=== PATIENT | male | born 2000 | race Caucasian/White ===

== ENCOUNTER 2020-05-30 10:41 | Emergency (ER) | payer OTHER, SELFPAY ==
--- NOTE | ~2020-05-30 | XR_ITS ---
XR forearm RT 2V 05/30/2020 11:03 INDICATION: Blunt trauma to the right arm with arm pain PROCEDURE: 2 views right forearm COMPARISON: No prior studies for comparison. FINDINGS: Fracture, dislocation or subluxation is not identified. The soft tissues appear within norm al limits. No foreign bodies are identified. IMPRESSION: 1: NO ACUTE BONE OR JOINT ABNORMALITY IDENTIFIED. Reviewed, dictated and finalized at location B.
[2020-05-30 10:49] VITALS: BP 130/61; PULSE 72; RESP 16; TEMP 36.6; O2SAT 99
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
== END 2020-05-30 12:10 | disposition home or self-care (01) ==
PROVIDERS: Emergency Provider Registered Nurse; PCP Family Medicine Adolescent Medicine
DX: S50.11XA Contusion of right forearm, initial encounter (principal); W20.8XXA Other cause of strike by thrown, projected or falling object, initial encounter; G47.419 Narcolepsy without cataplexy
CPT/HCPCS: 73090; 99213; G0463

== ENCOUNTER 2020-10-14 17:15 | Outpatient (CLI) | payer SELFPAY ==
--- NOTE | ~2020-10-14 | XR_ITS ---
EXAMINATION: XR lumbar spine 2-3V DATE: 10/14/2020 17:43 INDICATION: Low back pain one month post injury after bending over with audible pop. TECHNIQUE: Anteroposterior and lateral views of the lumbar spine, and cone-down lateral view of the l umbosacral junction were obtained. COMPARISON: 06/16/2015 FINDINGS: 2 mm retrolisthesis L4 on L5. Vertebral body heights are normal. Mild disc height loss at L4-L5. Lumb ar facet joints appear unremarkable. Sacrum and bilateral sacroiliac joints are normal. IMPRESSION: 1. Mild disc height loss at L4-L5 2 mm retrolisthesis L4 on L5, new since the prior study. Reviewed, dictated and finalized at location A. RVISOR TYPESETTING IMPRESSION: 1. Mild disc height loss at L4-L5 2 mm retrolisthesis L4 on L5, new since the p rior study.
== END 2020-10-14 17:16 | disposition home or self-care (01) ==
LOC: CHSIMG 17:21
PROVIDERS: PCP Family Medicine Adolescent Medicine
DX: M54.5 Low back pain (principal)
CPT/HCPCS: 72100

== ENCOUNTER 2024-09-30 12:47 | Emergency (ER) | payer OTHER, SELFPAY ==
[2024-09-30] VITALS (12 sets, daily range): BP systolic 127–148; BP diastolic 67–88; PULSE 65–75; RESP 14; TEMP 36.4–36.7; O2SAT 98–100
--- NOTE | ~2024-09-30 | CT_ITS ---
EXAMINATION: CT abdomen pelvis w con DATE: 09/30/2024 14:22 INDICATION: Rt. side abdominal pain/ nausea x1 day TECHNIQUE: Computed tomography (CT) of the abdomen and pelvis was performed with 100 mL Omnipaque-350 intravenous contrast. Automated exposure control and iterative reconstruction technique were employe d. The dose-length product was 246.46 mGy-cm. COMPARISON: None. FINDINGS: Lower thorax: Unremarkable Liver: Normal. Biliary/Gallbladder: Gallbladder is normal. No bile duct dilation. Pancreas: No mass or duct dilation. Spleen: Normal. Adrenals:No mass. Kidneys: No suspicious mass, obstructing stone, or hydronephrosis. GI tract: No small or large bowel dilation. Dilated appendix with a prominent, hyperemic wall. No sig nificant surrounding inflammatory change, fluid, or organized collection. No evidence of wall breakdo wn. Mesentery/Peritoneum: No ascites, mass, or free air. Retroperitoneum: No mass. Pelvis: Pelvic organs are within normal limits. Soft Tissues: Soft tissues and body wall unremarkable. Bones: No acute osseous finding. IMPRESSION: Acute uncomplicated appendicitis. Reviewed, dictated and finalized at location [facility]
--- NOTE | 2024-09-30 13:00 | ED_ITS ---
HPI - General Adult General Chief complaint: Abdominal Pain Stated complaint: abdominal pain Time Seen by Provider: 09/30/24 13:00 Source: patient Mode of arrival: ambulatory Limitations: no limitations History of Present Illness HPI narrative: 24-year-old white male complains of right lower quadrant pain started periumbilical yesterday and then radiated to his right lower quadrant he he rates the pain is a 5/10 is worse than it was yesterday when he was seen in the urgent care around 2 or 3:00 p.m. he vomited around 1:00 a.m. some red tinged liquid has eaten since then today he ate breakfast last p.o. was 12 noon water and medications he has a little nauseous if he moves. The right ovary here is bumpy and hurt his abdomen. His urinalysis yesterday showed a trace of ketones otherwise was unremarkable he had a KUB and the urgent care told to go to the emergency room yesterday. Denies any other complaints. History of complex migraines type 1 narcolepsy and cataplexy possible epilepsy cardiac arrhythmia. No history of lung kidney liver disease diabetes thyroid any Jennifer or arthritis. No known drug allergies surgeries none Related Data Home Medications Medication Instructions Recorded Confirmed dexmethylphenidate 5 mg tablet 5 mg PO DAILY 09/30/24 09/30/24 methylphenidate HCl 10 mg tablet 10 mg PO DAILY 09/30/24 09/30/24 Allergies Allergy/AdvReac Type Severity Reaction Status Date / Time No Known Allergies Allergy Mild Verified 09/30/24 12:55 Review of Systems Review of Systems: All systems reviewed & are unremarkable except as noted in HPI and below PMFSH Past Medical History Medical History Foot fracture Narcolepsy Family History Family History Father Diabetes mellitus Hypertension Mother Depression Migraines Grandparent Acute myocardial infarction Depression Diabetes mellitus Heart disease Social History Social History Smoking status: Never smoker Second hand tobacco smoke exposure: No Alcohol intake: never Substance use: never Substance use type: does not use Living arrangements: with family Occupation/Education: occupation Gender identity (if verbalized by the patient): Male Sexual Orientation (if Verbalized by the Patient): Straight or Heterosexual Spiritual care concerns: No Agree to blood products: Yes Exam Narrative: White male patient with no apparent distress.? Head normocephalic, atraumatic.? Eyes conjunctiva pink sclera nonicteric.? Extraocular movements are intact.? Ears externally normal.? Oropharynx is clear with moist mucous membranes without exudates.? Neck is supple nontender no lymphadenopathy.? Back is nontender.? Lungs are clear.? Heart is regular rate and rhythm without murmurs gallops or rubs.? Chest wall nontender. Abdomen is soft mild right lower quadrant tenderness little rebound tenderness. 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 male genitalia normal no hernias. Normal testes. He has a rash consistent with tinea cruris.? Extremities no cyanosis clubbing or edema.? Skin is warm and dry without rashes or lesions.? Neurological patient is alert and oriented x4.? Motor and sensory grossly i ntact.? Gait is normal. Course Vital Signs Vital signs: Vital Signs Temperature 36.4 C 09/30/24 12:47 Pulse Rate 70 09/30/24 12:47 Respiratory Rate 14 09/30/24 12:47 Blood Pressure 147/87 H 09/30/24 12:47 Pulse Oximetry 99 09/30/24 12:47 Oxygen Delivery Room Air 09/30/24 12:47 Temperature 36.7 C 09/30/24 16:41 Pulse Rate 66 09/30/24 16:40 Respiratory Rate 14 09/30/24 12:47 Blood Pressure 128/83 09/30/24 16:40 Pulse Oximetry 98 09/30/24 16:40 Oxygen Delivery Room Air 09/30/24 12:47 Medical Decision Making MDM Narrative Medical decision making narrative: ? Patient placed in room:2 ? History and physical was performed. negative UA, CBC CMP lipase lactic acid normal on remarkable CT abdomen and pelvis with IV contrast showed uncomplicated acute appendicitis Independent Historian: patient, mother External Source Review: Differential Dx includes but not limited to: acute appendicitis her bowel bowel obstruction constipation Medications were Reviewed: home meds reviewed Medications given: Zosyn 3.375 g, normal saline 150 cc an hour Independently Interpreted by me: Shared decision Making: evaluation was discussed all questions were asked and answered and patient agreed with the plan. Social Situation Impacting Patients Care: Discussed with Sarah Mann accepting for Dr. Wellington at [facility] DISCHARGE DIAGNOSIS: Acute uncomplicated appendicitis DISPOSITION : transferred to [facility] to Dr. Baltazar CONDITION AT DISCHARGE: stable Vital Signs Vital Signs: Vital Signs Temperature 36.4 C 09/30/24 12:47 Pulse Rate 70 09/30/24 12:47 Respiratory Rate 14 09/30/24 12:47 Blood Pressure 147/87 H 09/30/24 12:47 Pulse Oximetry 99 09/30/24 12:47 Oxygen Delivery Room Air 09/30/24 12:47 Temperature 36.7 C 09/30/24 16:41 Pulse Rate 66 09/30/24 16:40 Respiratory Rate 14 09/30/24 12:47 Blood Pressure 128/83 09/30/24 16:40 Pulse Oximetry 98 09/30/24 16:40 Oxygen Delivery Room Air 09/30/24 12:47 Lab Data 09/30/24 13:31 09/30/24 13:31 Labs: Lab Results 09/30/24 Range/Units 13:31 WBC 7.6 (4.8-10.8) K/mm3 RBC 5.19 (4.70-6.10) M/mm3 Hgb 15.4 (14.0-18.0) g/dL Hct 44.1 (40.0-54.0) % MCV 85.0 (78.0-102.0) fL MCH 29.7 (27.0-31.0) pg MCHC 34.9 (32-36) g/dL RDW 12.2 (11.6-14.4) % Plt Count 277 (150-420) K/mm3 MPV 10.4 (8.7-11.0) fl Immature Gran % (Auto) 0.3 H (0.0-0.0) % Neut % (Auto) 54.9 (50.0-70.0) % Lymph % (Auto) 36.4 (18.0-42.0) % [place] % (Auto) 7.7 (2.0-11.0) % Eos % (Auto) 0.4 L (1.0-6.0) % Baso % (Auto) 0.3 (0.0-1.0) % Lymph # (Auto) 2.77 (1.10-4.50) K/mm3 [place] # (Auto) 0.59 (0.10-0.90) K/mm3 Eos # (Auto) 0.03 (0.02-0.50) K/mm3 Baso # (Auto) 0.02 (0.00-0.10) K/mm3 Abs Immat Gran (auto) 0.02 H (0.00-0.00) K/mm3 Absolute Neuts (auto) 4.19 (1.70-7.20) K/mm3 Absolute Nucleated RBC 0.00 (0.00-0.00) K/mm3 Nucleated RBC % 0.0 (0-0.0) % Sodium 137 (136-145) mmol/L Potassium 3.8 (3.5-5.1) mmol/L Chloride 100 (98-108) mmol/L Carbon Dioxide 30 (21-32) mmol/L Anion Gap 7 (4-12) mmol/L BUN 10 (7-18) mg/dL Creatinine 0.93 (0.70-1.30) mg/dL Estim Creat Clear Calc 106 ml/min Estimated GFR > 60 (59 - ) Glucose 83 (70-99) mg/dL Calculated Osmolality 282 L (285-295) mOsm/kg Lactic Acid 0.4 (0.4-2.0) mmol/L Calcium 9.5 (8.5-10.1) mg/dL Total Bilirubin 1.6 H (0.00-1.00) mg/dL AST 17 (15-37) U/L ALT 22 (16-63) U/L Alkaline Phosphatase 55 (46-116) U/L Total Protein 8.1 (6.4-8.2) g/dL Albumin 4.4 (3.4-5.0) g/dL Lipase 31 (16-77) U/L Urine Color Light yellow (Yellow) Urine Appearance Clear (Clear) Urine pH 6.0 (5.0-8.0) Ur Specific [place] 1.025 H (1.010-1.020) Urine Protein Negative (Negative) Urine Glucose (UA) Negative (Negative) Urine Ketones Negative (Negative) Ur Blood (Man) Negative (Negative) Urine Nitrate Negative (Negative) Urine Bilirubin Negative (Negative) Urine Urobilinogen 0.2 (0.2-1.0) mg/dL Leukocyte Esterase Rfl Negative (Negative) ALEKSANDRA/UL Discharge Plan Discharge Clinical Impression: Acute appendicitis, uncomplicated Patient Disposition: Acute Care Hospital Condition: Stable Additional Instructions: patient transferred to Dr. Wellington at [facility] via ground ambulance. Prescriptions: No Action methylphenidate HCl 10 mg tablet 10 mg PO DAILY dexmethylphenidate 5 mg tablet 5 mg PO DAILY Follow-up/Referrals: UNKNOWN,DOCTOR [Primary Care Provider] - Time of Disposition: 16:46
[2024-09-30 13:36] LABS: Add Urine Microscopic? NO; Appearance Urine Clear (Clear); Bilirubin Urine Negative (Negative); Blood Urine Negative (Negative); Color Urine Light Yellow (Yellow); Glucose Urine UA Negative (Negative); Ketones Urine Negative (Negative); Leukocyte Esterase Ur Negative LEU/UL (Negative); Nitrate Urine Negative (Negative); Protein Urine Negative (Negative); Specific Grav Ur 1.025 (1.010-1.020); Urobilinogen Urine 0.2 mg/dL (0.2-1.0)
[2024-09-30 13:37] LABS: Basophils Absolute Auto 0.02 K/mm3 (0.00-0.10); Basophils Percent Auto 0.3 % (0.0-1.0); Eosinophils Absolute Auto 0.03 K/mm3 (0.02-0.50); Eosinophils Percent Auto 0.4 % (1.0-6.0); Hematocrit 44.1 % (40.0-54.0); Hemoglobin 15.4 g/dL (14.0-18.0); Immature Granulocyte Absolute 0.02 K/mm3 (0.00-0.00); Immature Granulocyte Percent A 0.3 % (0.0-0.0); Lymphocytes Absolute Auto 2.77 K/mm3 (1.10-4.50); Lymphocytes Percent Auto 36.4 % (18.0-42.0); Mean Corpuscular HGB Conc 34.9 g/dL (32-36); Mean Corpuscular Hemoglobin 29.7 pg (27.0-31.0); Mean Platelet Volume 10.4 fl (8.7-11.0); Monocytes Absolute Auto 0.59 K/mm3 (0.10-0.90); Monocytes Percent Auto 7.7 % (2.0-11.0); Neutrophils Absolute Auto 4.19 K/mm3 (1.70-7.20); Neutrophils Percent Auto 54.9 % (50.0-70.0); Platelet Count Result 277 K/mm3 (150-420); Red Blood Count 5.19 M/mm3 (4.70-6.10); Red Cell Distribution Width 12.2 % (11.6-14.4); White Blood Count 7.6 K/mm3 (4.8-10.8)
[2024-09-30 13:51] LABS: Lactic Acid Reflex 0.4 mmol/L (0.4-2.0)
[2024-09-30 14:00] LABS: Alanine Aminotransferase 22 U/L (16-63); Albumin Level 4.4 g/dL (3.4-5.0); Alkaline Phosphatase 55 U/L (46-116); Anion Gap 7 mmol/L (4-12); Aspartate Amino Transferase 17 U/L (15-37); Bilirubin,Total 1.6 mg/dL (0.00-1.00); Blood Urea Nitrogen 10 mg/dL (7-18); Calcium 9.5 mg/dL (8.5-10.1); Carbon Dioxide 30 mmol/L (21-32); Chloride 100 mmol/L (98-108); Estimated CRCL calculation 106 ml/min; Estimated Glomerular Filt Rate > 60; Glucose 83 mg/dL (70-99); Lipase 31 U/L (16-77); Osmolality Calculated 282 mOsm/kg (285-295); Potassium 3.8 mmol/L (3.5-5.1); Sodium 137 mmol/L (136-145); Total Protein 8.1 g/dL (6.4-8.2)
[2024-09-30] MEDS: SODIUM CHLORIDE 0.9% IV 1,000 ML 150 ML IV CONT (16:18)
[2024-09-30] MEDS: PIPERACILLN/TAZ 3.375GM/NS50ML 3.375 GM/50 ML BAG IVPB (16:20)
== END 2024-09-30 17:11 | disposition short-term general hospital (02) ==
PROVIDERS: Emergency Provider Emergency Medicine
DX: K35.80 Unspecified acute appendicitis (principal)
CPT/HCPCS: 36415; 74177; 80053; 81003; 83605; 83690; 85025; 87040; 96365; 99284; J2543; J7030; Q9967

== ENCOUNTER 2024-09-30 18:27 | Observation (INO) | payer OTHER, SELFPAY ==
[2024-09-30] VITALS (11 sets, daily range): BP systolic 116–145; BP diastolic 64–84; PULSE 59–92; RESP 12–18; TEMP 36.3–36.8; O2SAT 95–100; BMI 24.0
--- NOTE | 2024-09-30 18:05 | ADMGEN ---
This patient, Ricco Noble, was admitted to 2 Medical Room 256-. Patient/family oriented to hospital policies and general routines including ID bracelet, bed and alarms, visiting hours, pain management, procedures, bathroom and other care routines, personal items, smoking policy, room service/diet, and visiting hours. Information on how to activate the Rapid Response Team has been discussed. Patient/Family are encouraged to report perceived risks to care and to ask questions if they do not understand what they are told or what they should do.
--- NOTE | 2024-09-30 18:08 | PM.CNGS ---
Assessment and Plan Assessment and plan (1) Acute appendicitis with localized peritonitis, without perforation or abscess: Qualifiers: Appendicitis gangrene presence: without gangrene Qualified Code(s): K35.30 - Acute appendicitis with localized peritonitis, without perforation or gangrene Code(s): K35.30 - Acute appendicitis with localized peritonitis, without perforation or gangrene Status: Acute Assessment and Plan: Patient appears to have a retrocecal appendix with acute appendicitis. After discussion, he agrees to go ahead with laparoscopic appendectomy. The procedure, risks, benefits have been discussed. All questions were answered. He understands and agrees to go ahead. History of Present Illness Consult details Consult date: 09/30/24 Reason for consult: abdominal pain Requesting physician: Carlos Cintron MD Narrative: Patient is a 24-year-old man who yesterday started having some periumbilical pain that moved to the right lower quadrant. The pain was persistent and associated with nausea and vomiting. He was seen in an urgent care yesterday about 2:00 p.m.. The pain worsened through the night and [place] [facility] [place] showed tenderness in the right lower quadrant. He had a normal white count but there was evidence of a left shift. CT scan was done and showed acute appendicitis. Patient transferred here to [facility]. After evaluation and discussion, he is taken to surgery now for laparoscopic appendectomy. He has a history of migraine headaches and narcolepsy. Review of Systems Review of Systems: All systems reviewed & are unremarkable except as noted in HPI and below (As per HPI) [facility] Past Medical History Medical History Foot fracture Narcolepsy Family History Family History Father Diabetes mellitus Hypertension Mother Depression Migraines Grandparent Acute myocardial infarction Depression Diabetes mellitus Heart disease Social History Social History Smoking status: Never smoker Second hand tobacco smoke exposure: No Alcohol intake: current Drinks per week: 1 Substance use: never Substance use type: does not use Do You Feel Safe in your Home?: Yes Lack of Transportation: No Lack of Food: Never True Current Housing: I Have Housing Concerned About Future Housing: No Difficulty Paying Gas/Electric Bills: No Difficulty Paying for Meds: No Currently Unemployed: No Education: Associate Degree Difficulty w/ Childcare or Family Care: No Living arrangements: with family Occupation/Education: occupation Gender identity (if verbalized by the patient): Male Sexual Orientation (if Verbalized by the Patient): Straight or Heterosexual Spiritual care concerns: No Agree to blood products: Yes Meds Home Medications and Allergies Home Medications Medication Instructions Recorded Confirmed Type dexmethylphenidate 5 mg tablet 10 mg PO DAILY 09/30/24 09/30/24 History dexmethylphenidate 5 mg tablet 15 mg PO QAM 09/30/24 09/30/24 History methylphenidate HCl 10 mg tablet 10 mg PO DAILY 09/30/24 09/30/24 History Allergies Allergy/AdvReac Type Severity Reaction Status Date / Time No Known Allergies Allergy Mild Verified 09/30/24 12:55 Exam Const: General: comfortable, no acute distress, alert and awake Nutritional Appearance: average body habitus HENMT: Head: normocephalic and atraumatic Mouth: Yes Normal oral and palatal mucosa present Eyes: Conjunctivae: conjunctivae normal Pupils: Equal, round and reactive pupils present EOM: EOMs intact bilaterally Neck: Neck: normal visual inspection, no lymphadenopathy and nontender Resp: Effort & Inspection: normal respiratory effort Auscultation: clear to auscultation bilaterally Cardio: Rate: regular rate Rhythm: regular rhythm Heart sounds: no gallops, no murmurs and no rubs GI: Inspection: normal to inspection, no abdominal wall ecchymosis, non-distended and scaphoid GI Palp: Yes Soft to palpation, Yes Tenderness to palpation present (GI) (Exquisite tenderness right lower quadrant with guarding), Yes Guarding due to palpation present (GI), No Hepatomegaly present, No Splenomegaly present, No Hernia present and No Palpable mass present Auscultation: normal bowel sounds Skin: Lesions: no lesions Rashes: no rashes Neuro: General: no focal motor deficits and CN's II-XI intact bilaterally Cranial nerves: Yes Equal, round and reactive pupils present, Yes Bilaterally intact EOM present, Yes facial symmetry and Yes Midline tongue present Speech: normal speech Motor exam (neuro): 5/5 motor strength present throughout and Motor abnormalities not present Extrem: General: no clubbing, cyanosis or edema and edema Psych: Affect: normal affect Thought process: Normal thought process present Insight: Good insight present (Psych) Results Labs Labs: All other labs normal. Imaging Abdomen CT scan report/results: report reviewed and image reviewed (Appendix enlarged, hyperemic and has signs of inflammation consistent with acute appendicitis. It appears to be retrocecal.) CT scan - pelvis: report reviewed and image reviewed
--- NOTE | 2024-09-30 18:17 | WPDHPUPDATE1 ---
History and Physical Update Update Date/Time: 09/30/24 18:17 History and Physical has been reviewed, including an updated exam of the patient. There are NO changes in the patient's condition. Risks, benefits, and alternatives have been discussed and questions answered. Patient agrees to proceed with procedure.
--- NOTE | 2024-09-30 18:37 | PM.IMHP ---
H&P: HPI History of Present Illness Date/Time: 09/30/24 18:37 Chief Complaint: Abdominal Pain Narrative: 24 y/o M presents here with abdominal pain with PMH of complex migraines, type 1 narcolepsy, cataplexy, possible epilepsy, and cardiac arrhythmia. The patient presents here from [facility]. The patient provided the following history. He began experiencing periumbilical pain and nausea/vomiting yesterday (09/29) that radiated into his right lower quadrant that started around 10 a.m. Emesis had a reddish appearance, no blood clots. Had eaten ramen noodles earlier that morning. Estimates he has vomited 2 times in the last 24 hours. No alcohol use daily. He initially sought care at a local urgent care around 2 or 3:00 p.m.. At this visit they strongly encouraged the patient to go to the ED for further evaluation, ruled out kidney stones. Patient was discharged home. Pain persisted and began to worsen prompting him to seek evaluation in the ED. Pain is now in his right lower abdomen, no longer near his umbilicus. He describes it as sharp, nonradiating, constant, aggravated by standing, and alleviated by laying. Initial VS at presentation: 97.6? F, HR 70, RR 14, 147/87, and 99% on RA. ED workup showed: No leukocytosis, no anemia, no significant electrolyte derangements, creatinine 0.93 and GFR >60, UA not consistent with UTI. CT of the abdomen pelvis showed acute uncomplicated appendicitis. Review of Systems Review of Systems: All systems reviewed & are unremarkable except as noted in HPI and below PMFSH Past Medical History Medical History Cataplexy Foot fracture Migraines Type 1 narcolepsy Family History Family History Father Diabetes mellitus Hypertension Mother Depression Migraines Grandparent Acute myocardial infarction Depression Diabetes mellitus Heart disease Social History Social History Smoking status: Never smoker Second hand tobacco smoke exposure: No Alcohol intake: current Drinks per week: 1 Substance use: never Substance use type: does not use Do You Feel Safe in your Home?: Yes Lack of Transportation: No Lack of Food: Never True Current Housing: I Have Housing Concerned About Future Housing: No Difficulty Paying Gas/Electric Bills: No Difficulty Paying for Meds: No Currently Unemployed: No Education: Associate Degree Difficulty w/ Childcare or Family Care: No Living arrangements: with family Occupation/Education: occupation Gender identity (if verbalized by the patient): Male Sexual Orientation (if Verbalized by the Patient): Straight or Heterosexual Spiritual care concerns: No Agree to blood products: Yes Meds Home Medications and Allergies Home Medications Medication Instructions Recorded Confirmed Type dexmethylphenidate 5 mg tablet 10 mg PO DAILY 09/30/24 09/30/24 History dexmethylphenidate 5 mg tablet 15 mg PO QAM 09/30/24 09/30/24 History Allergies Allergy/AdvReac Type Severity Reaction Status Date / Time No Known Allergies Allergy Mild Verified 09/30/24 12:55 Vital Signs Vital Signs - 24 hr 09/30/24 18:13 09/30/24 18:21 Temperature 98.1 F Pulse Rate 73 Respiratory Rate 14 Blood Pressure 134/78 Pulse Oximetry 98 Oxygen Delivery Room Air Exam Const: General: comfortable and no acute distress Other: , male, nontoxic appearance HENMT: Face/Nose/Sinus: Normal nares present Mouth: Yes moist mucous membranes Eyes: General: appearance normal, both eyes and all related structures Sclera: sclerae normal Pupils: Equal, round and reactive pupils present EOM: EOMs intact bilaterally Resp: Effort & Inspection: normal respiratory effort Auscultation: clear to auscultation bilaterally Cardio: Rate: regular rate Rhythm: regular rhythm Other: S1-S2 present without murmur, rub, ectopy GI: Other: Abdomen soft and nondistended. Tenderness in the right lower quadrant. Skin: General skin exam: normal color and no rashes or lesions noted Wounds: no wounds Neuro: Speech: normal speech Motor exam (neuro): 5/5 motor strength present throughout Sensory Exam: normal sensation Other: A&O x4 Extrem: General: normal to inspection Psych: Mental Status: mental status grossly normal Affect: normal affect Other: Good insight and judgment, pleasant Assessment and Plan Assessment and plan (1) Acute appendicitis with localized peritonitis, without perforation or abscess: Qualifiers: Appendicitis gangrene presence: without gangrene Qualified Code(s): K35.30 - Acute appendicitis with localized peritonitis, without perforation or gangrene Code(s): K35.30 - Acute appendicitis with localized peritonitis, without perforation or gangrene Status: Acute Assessment and Plan: - CT abdomen/pelvis showed acute uncomplicated appendicitis - started on Zosyn on 09/30, continue - general surgery consulted, Giovanny MCPHERSON. Plan for OR this evening. - NPO - analgesics and antiemetics p.r.n. - trend labs Plan Diet: NPO, regular diet post surgery GI Prophylaxis: Not currently indicated DVT Prophylaxis: SCDs Lines: Peripheral Code Status: Full code Quality VTE Prophylaxis VTE prophylaxis: mechanical ordered Hospitalist [facility] Advance Care Plan I have confirmed that the patient's Advanced Care Plan is present, code status is documented, or surrogate decision maker is listed in patient medical record.: Yes Medication Reconciliation I have utilized all available resources to obtain, update and review the patients current medications (includes all prescriptions, OTC, herbals, cannabis, and nutritional supplements).: Yes
[2024-09-30] MEDS: SODIUM CHLORIDE 0.9% IV 1,000 ML 100 ML IV CONT (18:48)
--- NOTE | 2024-09-30 20:03 | P.PNAN_ITS ---
Anes - Eval Pre Procedure Procedure: Operation Date: 09/30/24 20:00 Proposed Procedures p Laparoscopic Appendectomy - King Baltazar MD Date/Time: 09/30/24 20:03 Pre Op Diagnosis: Acute appendicitis Patient Data Age: 24 Gender: M Height: 1.75 m Weight: 74 kg Last Vital Signs Temp 36.7 C 09/30/24 18:13 Pulse 73 09/30/24 18:13 Resp 14 09/30/24 18:13 BP 134/78 09/30/24 18:13 Pulse Ox 98 09/30/24 18:13 O2 Del Method Room Air 09/30/24 18:21 Allergies Allergy/AdvReac Type Severity Reaction Status Date / Time No Known Allergies Allergy Mild Verified 09/30/24 12:55 Home Medications Medication Instructions Recorded Confirmed Type dexmethylphenidate 5 mg tablet 10 mg PO DAILY 09/30/24 09/30/24 History dexmethylphenidate 5 mg tablet 15 mg PO QAM 09/30/24 09/30/24 History Patient hx anesthesia problems: none Family hx anesthesia problems: none Results Review: All pre-operative results and documents have been reviewed as part of the pre- operative evaluation. COUNT INCLUDES THE [facility] Past Medical History Medical History Cataplexy Foot fracture Migraines Type 1 narcolepsy Family History Family History Father Diabetes mellitus Hypertension Mother Depression Migraines Grandparent Acute myocardial infarction Depression Diabetes mellitus Heart disease Social History Social History Smoking status: Never smoker Second hand tobacco smoke exposure: No Alcohol intake: current Drinks per week: 1 Substance use: never Substance use type: does not use Do You Feel Safe in your Home?: Yes Lack of Transportation: No Lack of Food: Never True Current Housing: I Have Housing Concerned About Future Housing: No Difficulty Paying Gas/Electric Bills: No Difficulty Paying for Meds: No Currently Unemployed: No Education: Associate Degree Difficulty w/ Childcare or Family Care: No Living arrangements: with family Occupation/Education: occupation Gender identity (if verbalized by the patient): Male Sexual Orientation (if Verbalized by the Patient): Straight or Heterosexual Spiritual care concerns: No Agree to blood products: Yes Exam Day of Procedure 09/30/24 20:03
[2024-09-30] MEDS: ceFAZolin 2 GM/D5W 50 ML 2 GM/50 ML BAG IVPB (20:10)
--- NOTE | 2024-09-30 20:12 | WPDANESEPPF ---
Anes - Initial Pre Proc Eval Procedure: Operation Date: 09/30/24 20:00 Proposed Procedures p Laparoscopic Appendectomy - King Baltazar MD Date/Time: 09/30/24 20:12 Surgeon: Vikash Wellington MD Pre Op Diagnosis: Acute appendicitis Patient Data Age: 24 Gender: M Height: 1.75 m Weight: 74 kg Last Vital Signs Temp 36.7 C 09/30/24 18:13 Pulse 73 09/30/24 18:13 Resp 14 09/30/24 18:13 BP 134/78 09/30/24 18:13 Pulse Ox 98 09/30/24 18:13 O2 Del Method Room Air 09/30/24 18:21 Allergies Allergy/AdvReac Type Severity Reaction Status Date / Time No Known Allergies Allergy Mild Verified 09/30/24 12:55 Home Medications Medication Instructions Recorded Confirmed Type dexmethylphenidate 5 mg tablet 10 mg PO DAILY 09/30/24 09/30/24 History dexmethylphenidate 5 mg tablet 15 mg PO QAM 09/30/24 09/30/24 History Patient hx anesthesia problems: none Family hx anesthesia problems: none Results Review: All pre-operative results and documents have been reviewed as part of the pre-operative evaluation. [facility] Past Medical History Medical History Cataplexy Foot fracture Migraines Type 1 narcolepsy Family History Family History Father Diabetes mellitus Hypertension Mother Depression Migraines Grandparent Acute myocardial infarction Depression Diabetes mellitus Heart disease Social History Social History Smoking status: Never smoker Second hand tobacco smoke exposure: No Alcohol intake: current Drinks per week: 1 Substance use: never Substance use type: does not use Do You Feel Safe in your Home?: Yes Lack of Transportation: No Lack of Food: Never True Current Housing: I Have Housing Concerned About Future Housing: No Difficulty Paying Gas/Electric Bills: No Difficulty Paying for Meds: No Currently Unemployed: No Education: Associate Degree Difficulty w/ Childcare or Family Care: No Living arrangements: with family Occupation/Education: occupation Gender identity (if verbalized by the patient): Male Sexual Orientation (if Verbalized by the Patient): Straight or Heterosexual Spiritual care concerns: No Agree to blood products: Yes Anes - Eval Final PreProcedure Day of Procedure 09/30/24 20:12 Patient weight: normal Heart: regular rate and rhythm Lungs: clear to auscultation Airway: Mallampati scale class 1 Neurological: alert and oriented Last oral intake: >/= 8 hours ASA classification: III Emergent: yes Anesthetic plan: proceed Anesthesia type and monitoring: general GIVS and ETT and standard monitoring Results Review: All pre-operative results and documents have been reviewed as part of the pre-operative evaluation. Informed Consent: The patient's anesthetic plan and its attendant risks and benefits were discussed with the patient/family/POA. Questions were solicited and answers provided to the satisfaction of the patient/family/POA.
[2024-09-30] MEDS: BUPIVACAINE/EPINEPHRINE 0.5% 50 ML VIAL 30 ML INFILTRATE (20:40)
[2024-09-30] MEDS: LACTATED RINGERS 1,000 ML 30 ML IV CONT (20:55)
--- NOTE | 2024-09-30 20:55 | P.OP_ITS ---
Procedure Note - Detailed Date of Procedure 09/30/24 Pre-op Diagnosis Acute appendicitis Post-op Diagnosis Same Procedure Performed Laparoscopic appendectomy Surgeon King Baltazar MD Cloth Pattern Maker Kelly Love [facility] Anesthesia General and Local Indications Patient developed periumbilical pain yesterday that moved to his right lower quadrant. The pain became worse and was associated with vomiting. He came to the emergency room at [facility] today. He was noted to have a normal white count but tenderness in the right lower quadrant. CT scan showed acute appendicitis. He transferred to [facility] and is taken to surgery now for laparoscopic appendectomy. Findings Acute non perforated appendicitis Description of Procedure Patient was taken to surgery and induced into general anesthesia. The abdomen is prepped draped. Trocars were placed in usual fashion using VisualOn optical trocars and a 5 mm camera. Patient was placed in Trendelenburg with the right-side elevated. The appendix was found and was obviously inflamed consistent with acute appendicitis. The appendix was grasped and elevated exposing the mesoappendix. Using cautery, the mesoappendix was carefully cauterized and the appendiceal artery exposed. The artery was then thoroughly cauterized and divided. We continued the dissection and came to the base of the appendix. The base the appendix was skeletonized. A Vicryl endoloop was used to ligate the appendix at its base. The appendix was amputated just above the ligature. The mucosa of the appendiceal stump was cauterized thoroughly. The appendix was immediately placed in an Endo-Catch bag and retrieved through the 10 11 left lower quadrant trocar site. We replaced the trocar and then reviewed the areas of dissection and the appendiceal stump. All looked good. We then evacuated CO2 and removed the trocar sleeves. Skin wounds were closed with subcuticular 4-0 Monocryl skin suture. The wounds were dressed with Exofin surgical adhesive. Patient was then awakened taken to recovery in good condition. Sponge and needle counts were correct x2. Estimated Blood Loss -5 Drains No Packing No Pathology Yes (Appendix) Complications None Condition Stable Disposition PACU [facility] Billing Surgery - Charge Forward: Surgery Billing (Laparoscopic appendectomy)
[2024-09-30] MEDS: fentaNYL CITRATE INJ (*CRX) 100 MCG/2 ML VIAL 25 MCG IV PUSH ×4 (21:21→21:34)
[2024-09-30] MEDS: LACTATED RINGERS 1,000 ML 100 ML IV CONT (22:27)
[2024-09-30] MEDS: IBUPROFEN IV 800 MG/200 ML 800 MG/200 ML BAG 400 MG IVPB (23:33)
[2024-10-01] VITALS (8 sets, daily range): BP systolic 108–135; BP diastolic 50–74; PULSE 64–114; RESP 16–20; TEMP 36.2–36.9; O2SAT 97–99
[2024-10-01] MEDS: HYDROcodone/acetaminophen (*CRX) 10-325 MG TABLET 1 TAB PO (02:12)
--- NOTE | 2024-10-01 05:35 | PHAR ---
HOME MEDICATION: DEXMETHYLPHENIDATE 5 MG TABLET, SIG ON BOTTLE: TAKE ONE TABLET IN THE MORNING. PATIENT TOTAL DOSE 15 MG IN THE MORNING AND 10 MG AT 1:30 PM, PATIENT FAMILY ONLY BROUGHT IN BOTTLE OF 5 MG TABLET, NURSE CLARIFIED WITH FAMILY AND IT WAS EXPLAINED THAT THEY ALSO HAVE A DEXMETHYLPHENIDATE 10 MG TABLET PRESCRIPTION THAT IS USED IN [place] THE 5 MG TABLETS TO MAKE THE 15 MG AND 10 MG DOSES. PER NURSE FAMILY SAID IT IS OK IF HE TAKES 3 TABLETS OF THE 5 MG TABLETS TO TOTAL 15 MG IN THE MORNING AND 2 TABLETS TO MAKE THE 10 MG DOSE AT 1330. VERIFIED IN PHARMACY 10/01/24@0576
[2024-10-01] MEDS: oxyCODONE/ACETAMINOPHEN (*CRX) 5-325 MG TABLET 1 TABLET PO ×2 (05:43→14:07)
[2024-10-01] MEDS: ONDANSETRON INJ 4 MG/2 ML VIAL IV PUSH ×3 (05:43→14:09)
[2024-10-01 05:58] LABS: Basophils Percent Auto 0.1 % (0.2-1.2); Hematocrit 40.8 % (42.0-52.0); Hemoglobin 13.9 g/dL (14.0-18.0); Immature Granulocyte Absolute 0.03 K/mm3 (0.00-0.031); Immature Granulocyte Percent A 0.3 % (0-0.5); Lymphocytes Absolute Auto 1.24 K/mm3 (0.9-3.2); Lymphocytes Percent Auto 13.1 % (18.3-44.2); Mean Corpuscular HGB Conc 34.1 g/dl (32-36); Mean Corpuscular Hemoglobin 29.6 pg (26-34); Mean Platelet Volume 10.6 fl (7.4-10.4); Monocytes Absolute Auto 0.4 K/mm3 (0.1-0.6); Monocytes Percent Auto 4.3 % (2.6-8.5); Neutrophils Absolute Auto 7.8 K/mm3 (1.3-6.7); Neutrophils Percent Auto 82.2 % (45.5-73.1); Platelet Count Result 228 k/mm3 (150-375); Red Blood Count 4.69 M/mm3 (4.6-6.20); Red Cell Distribution Width 12.6 % (11.5-14.5); White Blood Count 9.5 K/mm3 (4.5-10.0)
[2024-10-01] MEDS: DEXMETHYLPHENIDATE 5 MG 15 EACH PO (06:03)
[2024-10-01 06:16] LABS: Alanine Aminotransferase 18 U/L (6-50); Albumin Level 4.2 g/dL (3.5-5.1); Alkaline Phosphatase 43 U/L (38-126); Anion Gap 7 mmol/L (4-12); Aspartate Amino Transferase 34 U/L (17-59); Bilirubin,Total 1.7 mg/dL (0.2-1.3); Blood Urea Nitrogen 11 mg/dL (9-20); Calcium 9.3 mg/dL (8.4-10.2); Carbon Dioxide 25 mmol/L (22-30); Chloride 103 mmol/L (98-107); Estimated CRCL calculation 122 ml/min; Estimated Glomerular Filt Rate > 60; Glucose 117 mg/dL (65-110); Potassium 4.6 mmol/L (3.4-5.0); Sodium 135 mmol/L (137-145)
[2024-10-01] MEDS: ENOXAPARIN 40 MG/0.4 ML SYRINGE SUB-Q (09:25)
--- NOTE | 2024-10-01 11:27 | P.PNGS_ITS ---
Progress Note: A&P Assessment and Plan (1) Acute appendicitis with localized peritonitis, without perforation or abscess: Qualifiers: Appendicitis gangrene presence: without gangrene Qualified Code(s): K35.30 - Acute appendicitis with localized peritonitis, without perforation or gangrene Code(s): K35.30 - Acute appendicitis with localized peritonitis, without perforation or gangrene Status: Acute Assessment and Plan: Postop day 1 following laparoscopic appendectomy for acute uncomplicated ap pendicitis. He is having some nausea this morning after trying clear with liquids. We will give him some Zofran. Advance diet as tolerated if nausea improves. Okay to discharge later today if he is tolerating a diet and nausea resolves. Follow-up in [address] Baltazar. Plan I have discussed the patient's case and plan of care with Dr. Baltazar. Subjective Subjective Date/Time Seen: 10/01/24 11:27 Post Op day: 1 (Laparoscopic appendectomy) Patient reports: feels better and nausea Interval history: Patient seen this morning. He reports feeling well when he woke up and ate his entire clear liquid tray. Shortly after taking an although clear liquids, he felt nauseous. This came on suddenly. No vomiting. He reports some mild incisional pain that is well controlled. He is tolerating activity and voiding without difficulty. No other complaints at this time. Exam Const: General: comfortable and no acute distress GI: Inspection: non-distended and incision (incisions dry and intact) GI Palp: Yes Soft to palpation, Yes Tenderness to palpation present (GI) (incisional) and No Guarding due to palpation present (GI) Auscultation: normal bowel sounds Neuro: General: moves all extremities and no focal motor deficits Extrem: General: no calf tenderness and no edema Psych: Mental Status: mental status grossly normal Insight: Good insight present (Psych) Objective Data Vital Signs Vital Signs: Vital Signs - 24 hr 09/30/24 18:13 09/30/24 18:21 09/30/24 20:55 Temperature 98.1 F 97.3 F L Pulse Rate 73 92 Respiratory Rate 14 16 Blood Pressure 134/78 145/84 H Pulse Oximetry 98 100 Oxygen Delivery Room Air Simple Face Mask Oxygen Flow Rate 8 09/30/24 21:10 09/30/24 21:25 09/30/24 21:40 Temperature Pulse Rate 71 63 63 Respiratory Rate 16 14 12 Blood Pressure 139/76 128/77 124/71 Pulse Oximetry 100 100 97 Oxygen Delivery Simple Face Mask Simple Face Mask Room Air Oxygen Flow Rate 8 8 09/30/24 21:55 09/30/24 19:52 09/30/24 20:00 Temperature 97.9 F Pulse Rate 70 59 L 63 Respiratory Rate 12 18 14 Blood Pressure 120/71 127/73 Pulse Oximetry 98 97 100 Oxygen Delivery Room Air Room Air Oxygen Flow Rate 09/30/24 22:15 09/30/24 22:30 09/30/24 23:00 Temperature 97.3 F L 97.9 F 98.2 F Pulse Rate 65 61 76 Respiratory Rate 16 18 18 Blood Pressure 125/64 116/65 116/65 Pulse Oximetry 96 95 98 Oxygen Delivery Oxygen Flow Rate 10/01/24 00:00 10/01/24 03:52 10/01/24 09:08 Temperature 98.4 F 98.1 F Pulse Rate 64 64 Respiratory Rate 16 18 Blood Pressure 108/50 L 112/54 L Pulse Oximetry 99 99 Oxygen Delivery Room Air Oxygen Flow Rate 10/01/24 08:00 Temperature 97.7 F Pulse Rate 78 Respiratory Rate 17 Blood Pressure 135/70 Pulse Oximetry 98 Oxygen Delivery Oxygen Flow Rate Intake/Output Intake/Output: Intake & Output 09/28/24 09/29/24 09/30/24 10/01/24 23:59 23:59 23:59 23:59 Intake Total 350 2045 Balance 350 2045 Meds/Results Medications: Active Medications Generic Name Dose Route Start Last Admin Trade Name Freq PRN Reason Stop Dose Admin Acetaminophen 500 mg 09/30/24 22:03 Acetaminophen 500 Mg Tablet PO Q6H PRN Pain Rated 1-3 Hydrocodone Bitart/Acetaminophen 1 tab 09/30/24 22:03 10/01/24 02:12 Hydrocodone/Acetaminophen (*Crx) 10-325 Mg Tablet PO 1 tab Q4H PRN Administration Pain Rated 7-10 Enoxaparin Sodium 40 mg 10/01/24 09:00 10/01/24 09:25 Enoxaparin 40 Mg/0.4 Ml Syringe SUB-Q 40 mg DAILY ALEXIS Administration Ibuprofen 800 mg in 200 mls @ 400 mls/hr 09/30/24 22:03 09/30/24 23:33 Caldolor 800 Mg/200 Ml IVPB 400 mls/hr Q6H PRN Administration Breakthrough Pain Rated 1-3 or NPO Miscellaneous Information 1 each 10/01/24 00:01 10/01/24 05:51 Med Rec Order Clarification XX 10/31/24 00:00 1 each CLARIFY ALEXIS Administration Morphine Sulfate 1 mg 09/30/24 22:03 Morphine Sulfate (*Crx) 2 Mg/Ml Inj IV PUSH Q2H PRN Breakthrough Pain Rated 4-6 or NPO Morphine Sulfate 2 mg 09/30/24 22:05 Morphine Sulfate (*Crx) 2 Mg/Ml Inj IV PUSH Q2H PRN Breakthrough Pain Rated 7-10 or NPO Naloxone HCl 0.1 mg 09/30/24 22:03 Naloxone Hcl 0.4 Mg/Ml Vial IV PUSH Q2M PRN Opiate Reversal Home Medication ( 10 mg 10/01/24 13:30 Dexmethylphenidate 5 PO 10/31/24 13:29 Mg Tablet) DAILY@1330 [facility] Home Medication ( 15 mg 10/01/24 05:55 10/01/24 06:03 Dexmethylphenidate 5 PO 10/31/24 05:54 15 mg Mg Tablet) DAILY@0515 [facility] Administration Ondansetron HCl 4 mg 09/30/24 22:03 10/01/24 09:21 Ondansetron Inj 4 Mg/2 Ml Vial IV PUSH 4 mg Q4H PRN Administration Nausea And Vomiting Oxycodone/Acetaminophen 1 tablet 09/30/24 22:03 10/01/24 05:43 Oxycodone/Acetaminophen (*Crx) 5-325 Mg Tablet PO 1 tablet Q4H PRN Administration Pain Rated 4-6 Labs Labs: Laboratory Results - last 24 hr 10/01/24 05:19 WBC 9.5 RBC 4.69 Hgb 13.9 L Hct 40.8 L MCV 87.0 MCH 29.6 MCHC 34.1 RDW 12.6 Plt Count 228 MPV 10.6 H Immature Gran % (Auto) 0.3 Neut % (Auto) 82.2 H Lymph % (Auto) 13.1 L Rabun % (Auto) 4.3 Eos % (Auto) 0.0 Baso % (Auto) 0.1 L Lymph # (Auto) 1.24 Rabun # (Auto) 0.4 Eos # (Auto) 0.0 Baso # (Auto) 0.0 Abs Immat Gran (auto) 0.03 Absolute Neuts (auto) 7.8 H Absolute Nucleated RBC 0.000 Nucleated RBC % 0.0 Sodium 135 L Potassium 4.6 Chloride 103 Carbon Dioxide 25 Anion Gap 7 BUN 11 Creatinine 0.80 Estim Creat Clear Calc 122 Estimated GFR > 60 Glucose 117 H Calcium 9.3 Total Bilirubin 1.7 H AST 34 ALT 18 Alkaline Phosphatase 43 Total Protein 7.0 Albumin 4.2
--- NOTE | 2024-10-01 14:14 | P.PNIM_ITS ---
Progress Note: A&P Assessment and Plan (1) Acute appendicitis with localized peritonitis, without perforation or abscess: Qualifiers: Appendicitis gangrene presence: without gangrene Qualified Code(s): K35.30 - Acute appendicitis with localized peritonitis, without perforation or gangrene Code(s): K35.30 - Acute appendicitis with localized peritonitis, without perforation or gangrene Status: Acute Assessment and Plan: - CT abdomen/pelvis showed acute uncomplicated appendicitis - started on Zosyn on 09/30, discontinued - diet: clear liquid advance as tolerated - analgesics and antiemetics p.r.n. - monitor vital signs - monitor serum electrolytes and CBC - general surgery consulted, Giovanny MCPHERSON. s/p laparoscopic appendectomy 09/[address] Baltazar Plan Diet: NPO, regular diet post surgery GI Prophylaxis: Not currently indicated DVT Prophylaxis: SCDs Lines: Peripheral Code Status: Full code Time Spent With Patient Time with patient: 25 - 35 minutes Subjective Date/time seen: 10/01/24 14:14 Interval history: 24 y/o M presents here with abdominal pain with PMH of complex migraines, type 1 narcolepsy, cataplexy, possible epilepsy, and cardiac arrhythmia. Patient is pleasant lying comfortably in bed his at bedside. He continues to endorse abdominal pain and left shoulder pain. Attempted advancing patient's diet however he did not tolerate, developing worsening abdominal pain and nausea. Was planning on discharging patient however since he was unable to tolerate he will remain inpatient at this. Surgery made aware. He has no other complaints denying chest pain, shortness a breath, palpitations. Review of Systems Review of Systems: All systems reviewed & are unremarkable except as noted in HPI and below Exam Narrative: AF HR 74 RR 18 SpO2 98 BP 132/68 General: well nourished, well-developed male in no acute respiratory distress who is nontoxic appearing, lying semi recumbent in bed. HEENT: Normocephalic. Atraumatic. Extraocular movement intact. Sclera clear and anicteric. No facial asymmetry. Chest: Lungs are clear to auscultation bilaterally. No wheezes or crackles. CV: Heart was regular rate and rhythm. S1/S2. No murmurs, gallops, or rubs. Abd: Abdomen was soft. Tender to palpation. Nondistended. Positive bowel sounds. Well healing laparoscopic incisions. No organomegaly or masses. Neuro: Patient is alert and oriented x4. Cranial nerves 2-12 are intact. Speech is clear. Objective Data Vital Signs Vital Signs: Vital Signs - 24 hr 09/30/24 18:13 09/30/24 18:21 09/30/24 20:55 Temperature 98.1 F 97.3 F L Pulse Rate 73 92 Respiratory Rate 14 16 Blood Pressure 134/78 145/84 H Pulse Oximetry 98 100 Oxygen Delivery Room Air Simple Face Mask Oxygen Flow Rate 8 09/30/24 21:10 09/30/24 21:25 09/30/24 21:40 Temperature Pulse Rate 71 63 63 Respiratory Rate 16 14 12 Blood Pressure 139/76 128/77 124/71 Pulse Oximetry 100 100 97 Oxygen Delivery Simple Face Mask Simple Face Mask Room Air Oxygen Flow Rate 8 8 09/30/24 21:55 09/30/24 19:52 09/30/24 20:00 Temperature 97.9 F Pulse Rate 70 59 L 63 Respiratory Rate 12 18 14 Blood Pressure 120/71 127/73 Pulse Oximetry 98 97 100 Oxygen Delivery Room Air Room Air Oxygen Flow Rate 09/30/24 22:15 09/30/24 22:30 09/30/24 23:00 Temperature 97.3 F L 97.9 F 98.2 F Pulse Rate 65 61 76 Respiratory Rate 16 18 18 Blood Pressure 125/64 116/65 116/65 Pulse Oximetry 96 95 98 Oxygen Delivery Oxygen Flow Rate 10/01/24 00:00 10/01/24 03:52 10/01/24 09:08 Temperature 98.4 F 98.1 F Pulse Rate 64 64 Respiratory Rate 16 18 Blood Pressure 108/50 L 112/54 L Pulse Oximetry 99 99 Oxygen Delivery Room Air Oxygen Flow Rate 10/01/24 08:00 10/01/24 12:00 Temperature 97.7 F 97.7 F Pulse Rate 78 74 Respiratory Rate 17 18 Blood Pressure 135/70 132/68 Pulse Oximetry 98 98 Oxygen Delivery Oxygen Flow Rate Intake/Output Intake/Output: Intake & Output 09/28/24 09/29/24 09/30/24 10/01/24 23:59 23:59 23:59 23:59 Intake Total 350 2555 Balance 350 2555 Meds/Results Medications: Active Medications Generic Name Dose Route Start Last Admin Trade Name Freq PRN Reason Stop Dose Admin Acetaminophen 500 mg 09/30/24 22:03 Acetaminophen 500 Mg Tablet PO Q6H PRN Pain Rated 1-3 Hydrocodone Bitart/Acetaminophen 1 tab 09/30/24 22:03 10/01/24 02:12 Hydrocodone/Acetaminophen (*Crx) 10-325 Mg Tablet PO 1 tab Q4H PRN Administration Pain Rated 7-10 Enoxaparin Sodium 40 mg 10/01/24 09:00 10/01/24 09:25 Enoxaparin 40 Mg/0.4 Ml Syringe SUB-Q 40 mg DAILY ALEXIS Administration Ibuprofen 800 mg in 200 mls @ 400 mls/hr 09/30/24 22:03 09/30/24 23:33 Caldolor 800 Mg/200 Ml IVPB 400 mls/hr Q6H PRN Administration Breakthrough Pain Rated 1-3 or NPO Miscellaneous Information 1 each 10/01/24 00:01 10/01/24 05:51 Med Rec Order Clarification XX 10/31/24 00:00 1 each CLARIFY ALEXIS Administration Morphine Sulfate 1 mg 09/30/24 22:03 Morphine Sulfate (*Crx) 2 Mg/Ml Inj IV PUSH Q2H PRN Breakthrough Pain Rated 4-6 or NPO Morphine Sulfate 2 mg 09/30/24 22:05 Morphine Sulfate (*Crx) 2 Mg/Ml Inj IV PUSH Q2H PRN Breakthrough Pain Rated 7-10 or NPO Naloxone HCl 0.1 mg 09/30/24 22:03 Naloxone Hcl 0.4 Mg/Ml Vial IV PUSH Q2M PRN Opiate Reversal Home Medication ( 10 mg 10/01/24 13:30 Dexmethylphenidate 5 PO 10/31/24 13:29 Mg Tablet) DAILY@1330 [facility] Home Medication ( 15 mg 10/01/24 05:55 10/01/24 06:03 Dexmethylphenidate 5 PO 10/31/24 05:54 15 mg Mg Tablet) DAILY@0515 [facility] Administration Ondansetron HCl 4 mg 09/30/24 22:03 10/01/24 14:09 Ondansetron Inj 4 Mg/2 Ml Vial IV PUSH 4 mg Q4H PRN Administration Nausea And Vomiting Oxycodone/Acetaminophen 1 tablet 09/30/24 22:03 10/01/24 14:07 Oxycodone/Acetaminophen (*Crx) 5-325 Mg Tablet PO 1 tablet Q4H PRN Administration Pain Rated 4-6 Labs Labs: Laboratory Results - last 24 hr 10/01/24 05:19 WBC 9.5 RBC 4.69 Hgb 13.9 L Hct 40.8 L MCV 87.0 MCH 29.6 MCHC 34.1 RDW 12.6 Plt Count 228 MPV 10.6 H Immature Gran % (Auto) 0.3 Neut % (Auto) 82.2 H Lymph % (Auto) 13.1 L Maries % (Auto) 4.3 Eos % (Auto) 0.0 Baso % (Auto) 0.1 L Lymph # (Auto) 1.24 Maries # (Auto) 0.4 Eos # (Auto) 0.0 Baso # (Auto) 0.0 Abs Immat Gran (auto) 0.03 Absolute Neuts (auto) 7.8 H Absolute Nucleated RBC 0.000 Nucleated RBC % 0.0 Sodium 135 L Potassium 4.6 Chloride 103 Carbon Dioxide 25 Anion Gap 7 BUN 11 Creatinine 0.80 Estim Creat Clear Calc 122 Estimated GFR > 60 Glucose 117 H Calcium 9.3 Total Bilirubin 1.7 H AST 34 ALT 18 Alkaline Phosphatase 43 Total Protein 7.0 Albumin 4.2 Quality VTE Prophylaxis VTE prophylaxis: mechanical ordered
[2024-10-02 04:00] VITALS: BP 113/49; PULSE 56; RESP 20; TEMP 36.1; O2SAT 99
[2024-10-02] MEDS: HYDROcodone/acetaminophen (*CRX) 10-325 MG TABLET 1 TAB PO (05:02)
[2024-10-02] MEDS: DEXMETHYLPHENIDATE 5 MG 15 EACH PO (05:03)
[2024-10-02 08:00] VITALS: BP 118/67; PULSE 67; RESP 18; TEMP 36.3; O2SAT 96
[2024-10-02 08:30] VITALS: O2SAT 96
[2024-10-02] MEDS: ENOXAPARIN 40 MG/0.4 ML SYRINGE SUB-Q (08:30)
--- NOTE | 2024-10-02 10:35 | P.DS_ITS ---
DS: Admitting Diagnosis Discharge Date 10/02/2024 Admitting Diagnosis acute appendicitis with localized peritonitis, without perforation abscess DS: Discharge Diagnosis Discharge Diagnosis (1) Acute appendicitis with localized peritonitis, without perforation or abscess: Qualifiers: Appendicitis gangrene presence: without gangrene Qualified Code(s): K35.30 - Acute appendicitis with localized peritonitis, without perforation or gangrene Code(s): K35.30 - Acute appendicitis with localized peritonitis, without perforation or gangrene Status: Acute DS: Summary Hospital Course Reason for hospitalization: acute appendicitis with localized peritonitis, without perforation abscess Hospital Course: 24 y/o M presents here with abdominal pain with PMH of complex migraines, type 1 narcolepsy, cataplexy, possible epilepsy, and cardiac arrhythmia. Patient not meeting Sepsis criteria on admission. A CT abdomen/ pelvis was obtained and showed acute uncomplicated appendicitis. Patient was initially started on Zosyn however this was discontinued by surgery. Surgery was consulted and patient underwent a laparoscopic appendectomy on 09/[address] mendez. Following surgery patient was having nausea and was unable to tolerate a regular diet resulting in him remaining inpatient at that time. At time of discharge patient was denying any increased nausea/ vomiting or abdominal pain with a regular diet. He also had no complaints chest pain, shortness a breath, palpitations, nausea/ vom iting. Surgery again evaluated patient and stated that he was cleared to discharge from their standpoint. patient discharged home in a stable condition. He has a follow-up with Dr. Mendez next Tuesday. Status at Discharge Functional status at discharge: independent ambulation Time Spent with Patient Time attestation: Total time spent providing and/or coordinating discharge services: Time spent: Greater than 30 minutes Exam Narrative: AF HR 69 RR 18 SpO2 96 BP 120/72 General: well nourished, well-developed male in no acute respiratory distress who is nontoxic appearing, lying semi recumbent in bed. HEENT: Normocephalic. Atraumatic. Extraocular movement intact. Sclera clear and anicteric. No facial asymmetry. Chest: Lungs are clear to auscultation bilaterally. No wheezes or crackles. CV: Heart was regular rate and rhythm. S1/S2. No murmurs, gallops, or rubs. Abd: Abdomen was soft. Tender to palpation. Nondistended. Positive bowel sounds. Well healing laparoscopic incisions. No organomegaly or masses. Neuro: Patient is alert and oriented x4. Cranial nerves 2-12 are intact. Speech is clear. DS: Data Data Completed and Pending Completed studies during hospitalization: CT abdomen pelvis Pending studies at discharge: Pending at discharge 09/30/24 20:36 Surgical [PTH] Routine Discharge Plan Discharge Attending physician on discharge: Keo Chery Consulting providers: King Mendez Discharging Clinician: Bita Scott Anticipated Discharge Date/Time: 10/02/24 10:32 Patient Disposition: Home, Self-Care Activity: may shower, no straining and as tolerated Diet: as tolerated and regular Wound Care Instructions: incision open to air Discharge Instructions: Discharge instructions per surgery: 1. May shower the day after surgery over incisions. 2. Call office for: -Wound increasingly painful or bleeding -Vomiting -Fever of greater than 101 degrees 3. Expect some blood on dressing and old blood on skin. 4. If no bowel movement for three days, take 1 oz. (30 ml) Milk of Magnesia, if no results, take Fleets enema. 5. No heavy lifting > 15-20 pounds for 2 weeks. 6. No driving for 3 days or while taking narcotic pain medications. 7. Up walking 10-30 minutes three times per day. 8. Resume previous home medications. 9. Follow-up with Dr. Mendez on 10/08/24. Call to make appointment this week. 10. Oral pain medications prescription to be sent home with patient. 11. NUTRITION: Start out by drinking fluids and increase your diet as tolerat ed. If you experience nausea, try dry toast, crackers, and 7-UP. If nausea or vomiting persists, contact your surgeon?s office. Encouraged to continue with yearly vaccinations Return to the emergency department if he developed sudden shortness of breath, chest pain, nausea, vomiting, upset stomach or intractable diarrhea Return to the emergency department if you develop fever greater than 101.5 Thank you for choosing [facility] for your healthcare needs Patient Instructions: Oxycodone/Acetaminophen (By mouth), Appendicitis (GEN), Laparoscopic Appendectomy (DC) Patient Language: Turkish Stand Alone Forms: General Discharge Information, Work/School Release IP Follow-up/Referrals: King Mendez MD [Physician] - 10/08/24 (Call Dr. Lozano office to make an appointment to see him on TuesdayOctober 08.) Discharge Medications: New oxycodone-acetaminophen 5-325 mg tablet 0.5 - 1 tablet PO Q6H PRN (Reason: pain) Qty: 8 0RF ibuprofen 600 mg tablet 600 mg PO Q6H PRN (Reason: pain) Qty: 10 0RF Continued dexmethylphenidate 5 mg tablet 10 mg PO DAILY Rx Instructions: Patient takes at 1200 dexmethylphenidate 5 mg Tablet 15 mg PO QAM Rx Instructions: Takes at 0515 Date of admission: 09/30/24 18:27 Primary Care Provider: Carlos Cintron Admitting Provider: Vikash Wellington Attending physician on admission: Bita Scott Condition: Stable Hospitalist MIPS Heart Failure (Exclusion) Patient has history of Heart Transplant or Left Ventricular Assistive Device?: No IF YES, STOP HERE Heart Failure (Qualifier) Patient has current or prior documentation of LVEF less than or equal to 40%, or mod/servere depressed LVSF?: No IF NO, STOP HERE
--- NOTE | 2024-10-02 11:26 | PM.PNGS ---
Progress Note: A&P Assessment and Plan (1) Acute appendicitis with localized peritonitis, without perforation or abscess: Qualifiers: Appendicitis gangrene presence: without gangrene Qualified Code(s): K35.30 - Acute appendicitis with localized peritonitis, without perforation or gangrene Code(s): K35.30 - Acute appendicitis with localized peritonitis, without perforation or gangrene Status: Acute Assessment and Plan: Postop day 2 following laparoscopic appendectomy. His nausea is much better today. He is tolerating a regular diet. Okay to discharge from a surgical standpoint. Follow-up next Tuesday in the office with Dr. Baltazar. Plan I have discussed the patient's case and plan of care with Dr. Baltazar. Subjective Subjective Date/Time Seen: 10/02/24 09:26 Post Op day: 2 (Laparoscopic appendectomy) Patient reports: feels better, pain is less, tolerating a regular diet, voiding w/o difficulty, flatus, no bowel movement and afebrile Interval history: Patient feeling much better today. No nausea or vomiting. He is tolerating regular diet. Reports mild incisional discomfort that is well controlled. No abdominal pain. Exam Const: General: comfortable and no acute distress GI: Inspection: non-distended and incision (incisions dry and intact) GI Palp: Yes Soft to palpation, Yes Tenderness to palpation present (GI) (Minimal expected incisional tenderness) and No Guarding due to palpation present (GI) Auscultation: normal bowel sounds Psych: Mental Status: mental status grossly normal Insight: Good insight present (Psych) Objective Data Vital Signs Vital Signs: Vital Signs - 24 hr 10/01/24 12:00 10/01/24 16:00 10/01/24 19:27 Temperature 97.7 F 97.7 F 97.1 F L Pulse Rate 74 70 64 Respiratory Rate 18 18 20 Blood Pressure 132/68 128/74 127/63 Pulse Oximetry 98 97 99 Oxygen Delivery 10/01/24 20:00 10/01/24 23:57 10/02/24 04:00 Temperature 97.1 F L 97.0 F L Pulse Rate 64 114 H 56 L Respiratory Rate 20 20 20 Blood Pressure 115/51 L 113/49 L Pulse Oximetry 99 98 99 Oxygen Delivery Room Air 10/02/24 08:30 10/02/24 08:00 Temperature 97.3 F L Pulse Rate 67 Respiratory Rate 18 Blood Pressure 118/67 Pulse Oximetry 96 96 Oxygen Delivery Room Air Intake/Output Intake/Output: Intake & Output 09/29/24 09/30/24 10/01/24 10/02/24 23:59 23:59 23:59 23:59 Intake Total 350 3093 440 Output Total 300 Balance 350 3093 140 Meds/Results Medications: Active Medications Generic Name Dose Route Start Last Admin Trade Name Freq PRN Reason Stop Dose Admin Acetaminophen 500 mg 09/30/24 22:03 Acetaminophen 500 Mg Tablet PO Q6H PRN Pain Rated 1-3 Hydrocodone Bitart/Acetaminophen 1 tab 09/30/24 22:03 10/02/24 05:02 Hydrocodone/Acetaminophen (*Crx) 10-325 Mg Tablet PO 1 tab Q4H PRN Administration Pain Rated 7-10 Enoxaparin Sodium 40 mg 10/01/24 09:00 10/02/24 08:30 Enoxaparin 40 Mg/0.4 Ml Syringe SUB-Q 40 mg DAILY ALEXIS Administration Ibuprofen 800 mg in 200 mls @ 400 mls/hr 09/30/24 22:03 09/30/24 23:33 Caldolor 800 Mg/200 Ml IVPB 400 mls/hr Q6H PRN Administration Breakthrough Pain Rated 1-3 or NPO Miscellaneous Information 1 each 10/01/24 00:01 10/01/24 05:51 Med Rec Order Clarification XX 10/31/24 00:00 1 each CLARIFY ALEXIS Administration Morphine Sulfate 1 mg 09/30/24 22:03 Morphine Sulfate (*Crx) 2 Mg/Ml Inj IV PUSH Q2H PRN Breakthrough Pain Rated 4-6 or NPO Morphine Sulfate 2 mg 09/30/24 22:05 Morphine Sulfate (*Crx) 2 Mg/Ml Inj IV PUSH Q2H PRN Breakthrough Pain Rated 7-10 or NPO Naloxone HCl 0.1 mg 09/30/24 22:03 Naloxone Hcl 0.4 Mg/Ml Vial IV PUSH Q2M PRN Opiate Reversal Home Medication ( 10 mg 10/01/24 13:30 10/01/24 16:58 Dexmethylphenidate 5 PO 10/31/24 13:29 Not Given Mg Tablet) DAILY@1330 [facility] Home Medication ( 15 mg 10/01/24 05:55 10/02/24 05:03 Dexmethylphenidate 5 PO 10/31/24 05:54 15 mg Mg Tablet) DAILY@0515 ALEXIS Administration Ondansetron HCl 4 mg 09/30/24 22:03 10/01/24 14:09 Ondansetron Inj 4 Mg/2 Ml Vial IV PUSH 4 mg Q4H PRN Administration Nausea And Vomiting Oxycodone/Acetaminophen 1 tablet 09/30/24 22:03 10/01/24 14:07 Oxycodone/Acetaminophen (*Crx) 5-325 Mg Tablet PO 1 tablet Q4H PRN Administration Pain Rated 4-6
[2024-10-02 12:00] VITALS: BP 120/72; PULSE 69; RESP 18; TEMP 36.4; O2SAT 96
== END 2024-10-02 12:25 | disposition home or self-care (01) ==
PROVIDERS: Student in an Organized Health Care Education/Training Program; Surgery; Admitting Provider Internal Medicine; PCP Emergency Medicine; Visit Provider Student in an Organized Health Care Education/Training Program
PROC: 0DTJ4ZZ Resection of Appendix, Percutaneous Endoscopic Approach (ICD-10-PCS; CPT 44970; principal; 2024-09-30 20:00)
DX: K35.30 Acute appendicitis with localized peritonitis, without perforation or gangrene (principal); G43.909 Migraine, unspecified, not intractable, without status migrainosus; G47.411 Narcolepsy with cataplexy
CPT/HCPCS: 44970; 36415; 80053; 85025; 88304; A9270; G0378; G0379; J0690; J1100; J1171; J1650; J1741; J2003; J2250; J2405; J2704; J3010; J7030; J7120